=== PATIENT | male | born 2000 | race Caucasian/White ===

== ENCOUNTER 2024-12-04 22:07 | Emergency (ER) | payer OTHER, SELFPAY ==
[2024-12-04 22:08] VITALS: BP 136/95; PULSE 60; RESP 16; TEMP 36.9; O2SAT 100; BMI 21.1
--- NOTE | 2024-12-04 22:20 | EDS_ITS ---
HPI History of Present Illness Chief Complaint: Laceration Informant: patient Narrative Narrative: Patient is a 24-year-old male with no significant past medical history. He states roughly 12 hours ago he was at work and he was using a razor blade to cut a piece of siding. He states that the blade went through the siding and cut his right thigh. He states he put salve on the wound and a pressure dressing and then continued to work throughout the day. He states that the bleeding has stopped and he denies any numbness tingling weakness. However the wound will not hold close and he has concern he may need sutures for it to heal and secondary to his comes in for evaluation. PFSH PFS Medical History no medical history no medical history Home Medications ?Medication ?Instructions ?Recorded ?Last Taken ?Type cephalexin 500 mg capsule 500 mg PO TID 7 days #21 cap s 12/04/24 Unknown Rx Allergy/AdvReac Type Severity Reaction Status Date / Time No Known Allergies Allergy Verified 12/04/24 22:08 Social History Smoking Status: Never smoker ROS [facility] ED Constitutional Constitutional ED: Denies chills or fever(s) Cardiovascular Cardiovascular: Denies chest pain Respiratory/Chest Respiratory/Chest: Denies cough or dyspnea Gastrointestinal Gastrointestinal: Denies abdominal pain, diarrhea, nausea or vomiting Musculoskeletal Musculoskeletal: Reports other Details: Positive right thigh pain Integumentary Reports other Details: Positive right thigh laceration Neurologic Neurologic: Denies headache(s), paresthesias or weakness Hematologic/Lymphatic Hematologic/Lymphatic: Denies easy bleeding or easy bruising EXAM Physical Exam Const Vital Signs: 12/04/24 22:08 Temperature 98.4 F Temperature Source Oral Pulse Rate 60 Respiratory Rate 16 Blood Pressure 136/95 H Blood Pressure Mean 108 Pulse Ox 100 Oxygen Delivery Method Room Air Positive well nourished and well developed General Appearance ED: well developed HEENT HEENT Narrative: Normocephalic atraumatic Eyes PERRL and EOMs intact bilaterally General Eye ED: Negative for scleral icterus Neck supple Resp normal respiratory effort and clear to auscultation bilaterally Cardio regular rate and regular rhythm Extremity Extremity Narrative: Right lower extremity is neurovascularly intact. Patient has a linear/horizontal 6 cm muscular layer deep laceration to the distal third of the right anterior thigh. There is no active bleeding or retained foreign body. No ligamentous or tendon injury noted. Patient has full active range of motion Remainder of the exam is normal Neuro oriented x3, CN's II-XII intact bilaterally and no sensory deficits noted Sensorium / Orientation: alert Motor Exam: strength 5/5 throughout Psych mental status grossly normal Skin Skin Narrative: Right anterior thigh laceration as documented above No surrounding erythema or warmth or discharge to suggest secondary infection MDM MDM MDM Narrative Medical decision making narrative: Patient arrived to ER with a simple laceration to his right thigh. He was unsure of his tetanus status and therefore this was updated. He had no sign of ligamentous or tendon injury or no arterial bleeding and therefore I felt no need for imaging or laboratory studies. He has no surrounding findings of cellulitis or abscess or retained foreign body and therefore felt no need for workup other than closure of the wound as documented below. Now the wound is closed and he does not have a tendon laceration or ligamentous laceration or arterial bleed he is otherwise safe for discharge Patient had the right thigh wound cleaned with chlorhexidine. It was anesthetized in local fashion with a total of 8 mL of 2% lidocaine with epinephrine. The wound was copiously irrigated with normal saline. Five 2-0 Ethilon sutures and eight 4-0 Ethilon sutures for a total of 14 sutures were placed in simple interrupted fashion to bring the wound edges together well with good approximation. Patient tolerated the procedure well without complication History & Record Review Discussion w/independent historian: Patient and Family Discharge Plan Triage Chief Complaint: Laceration ED Provider: Rajendra Esparza Dx/Rx/DC Orders Clinical Impression: Laceration of right thigh Instructions: ED Laceration, All Closures Prescriptions: New cephalexin 500 mg capsule 500 mg PO TID 7 Days Qty: 21 0RF Primary Care Provider: Chalino Melo Referrals: Сергей Mcarthur MD [Med Staff - Active Staff, Family Practice] Activity Restrictions/Additional Instructions: Please wash your wound with soap and water to help prevent infection. If you notice increasing redness then you may start the antibiotic that was prescribed from the ER. If you develop a fever or lymphangitic streaking you should return to the ER for repeat evaluation. Otherwise see your family doctor or return to the ER in 7 to 10 days for suture removal Print Language: Welsh Disposition Disposition: Home, Self Care Discharge Date/Time: 12/04/24 23:33
[2024-12-04] MEDS: Lidocaine 2% /Epi 1:100 (20ml) 20 ML VIAL INFILT (23:23)
[2024-12-04 23:32] VITALS: BP 130/80; PULSE 65; RESP 16; TEMP 36.9; O2SAT 99
== END 2024-12-04 23:33 | disposition home or self-care (01) ==
PROVIDERS: Emergency Provider Emergency Medicine; PCP Family Medicine; Visit Provider Emergency Medicine
DX: S71.111A Laceration without foreign body, right thigh, initial encounter (principal); Z23 Encounter for immunization; W29.8XXA Contact with other powered hand tools and household machinery, initial encounter; Y99.0 Civilian activity done for income or pay
CPT/HCPCS: 12002; 90471; 90715; 99282